=== PATIENT | female | born 2005 | race Caucasian/White ===

== ENCOUNTER 2023-07-29 16:15 | Inpatient (IN) | payer BC, MEDICAID, SELFPAY ==
[2023-07-29] VITALS (12 sets, daily range): BP systolic 109–127; BP diastolic 54–77; PULSE 81–103; TEMP 36.8–36.9; BMI 37.8
[2023-07-29 16:51] LABS: Basophils Percent Auto 0.2 % (0.2-1.2); Eosinophils Absolute Auto 0.1 K/mm3 (0-0.3); Eosinophils Percent Auto 1.5 % (0-4.4); Hematocrit 32.4 % (37.0-47.0); Immature Granulocyte Absolute 0.15 K/mm3 (0.00-0.031); Immature Granulocyte Percent A 1.6 % (0-0.5); Lymphocytes Absolute Auto 1.43 K/mm3 (0.9-3.2); Lymphocytes Percent Auto 15.4 % (18.3-44.2); Mean Corpuscular HGB Conc 30.9 g/dl (32-36); Mean Corpuscular Hemoglobin 25.9 pg (26-34); Mean Corpuscular Volume 83.9 fl (80-100); Mean Platelet Volume 8.7 fl (7.4-10.4); Monocytes Percent Auto 10.2 % (2.6-8.5); Neutrophils Absolute Auto 6.6 K/mm3 (1.3-6.7); Neutrophils Percent Auto 71.1 % (45.5-73.1); Platelet Count Result 315 k/mm3 (150-375); Red Blood Count 3.86 M/mm3 (4.2-5.4); Red Cell Distribution Width 13.6 % (11.5-14.5); White Blood Count 9.3 K/mm3 (4.5-10.0)
--- NOTE | 2023-07-29 16:57 | LDADM ---
This patient, Kelsey Olivo, was admitted to Labor/Delivery/Recovery 108 on 07/29/23 at 16:15. Plans for labor, pain management and were discussed with patient. Patient/family oriented to hospital policies and general routines including ID bracelet, bed and alarms, visiting hours, pain management, procedures, bathroom and other care routines, personal items, smoking policy, room service/diet and guest tray routines, security routines, and visiting hours. Patient/Family are encouraged to report perceived risks to care and to ask questions if they do not understand what they are told or what they should do. See OBIX for further documentation.
--- NOTE | 2023-07-29 17:16 | WPDANESEPP ---
Anes - Eval Pre Procedure Procedure: labor epidural Date/Time: 07/29/23 17:16 Pre Op Diagnosis: Induction of Labor Patient Data Age: 18 Gender: F Height: 1.65 m Weight: 103 kg Last Vital Signs Pulse 85 07/29/23 17:12 BP 122/75 07/29/23 17:12 O2 Del Method Room Air 07/29/23 16:54 Allergies Allergy/AdvReac Type Severity Reaction Status Date / Time No Known Allergies Allergy Verified 07/08/23 13:22 Home Medications Medication Instructions Recorded Confirmed Type prenat.vits,jose,hdx-rsvl-mutet 1 tablet PO DAILY 07/29/23 07/29/23 History Laboratory Tests 07/29/23 16:43 WBC 9.3 K/mm3 (4.5-10.0) RBC 3.86 L M/mm3 (4.2-5.4) Hgb 10.0 L g/dL (12.0-15.0) Hct 32.4 L % (37.0-47.0) MCV 83.9 fl (80-100) MCH 25.9 L pg (26-34) MCHC 30.9 L g/dl (32-36) RDW 13.6 % (11.5-14.5) Plt Count 315 k/mm3 (150-375) MPV 8.7 fl (7.4-10.4) Immature Gran % (Auto) 1.6 H % (0-0.5) Neut % (Auto) 71.1 % (45.5-73.1) Lymph % (Auto) 15.4 L % (18.3-44.2) Upton % (Auto) 10.2 H % (2.6-8.5) Eos % (Auto) 1.5 % (0-4.4) Baso % (Auto) 0.2 % (0.2-1.2) Lymph # (Auto) 1.43 K/mm3 (0.9-3.2) Upton # (Auto) 1.0 H K/mm3 (0.1-0.6) Eos # (Auto) 0.1 K/mm3 (0-0.3) Baso # (Auto) 0.0 K/mm3 (0.0-0.1) Abs Immat Gran (auto) 0.15 H K/mm3 (0.00-0.031) Absolute Neuts (auto) 6.6 K/mm3 (1.3-6.7) Absolute Nucleated RBC 0.0 K/mm3 (0.0-0.012) Nucleated RBC % 0.0 % (0.0-0.2) RPR Pending Patient hx anesthesia problems: none Family hx anesthesia problems: none Results Review: All pre-operative results and documents have been reviewed as part of the pre-operative evaluation. [facility] Past Medical History Medical History (Updated 07/29/23 @ 17:17 by Diane Schmid CRNA) Arthritis Asthma Family History Family History Grandparent Diabetes mellitus Asthma Mother Hypothyroidism Father Sleep apnea Restless leg syndrome Other Cancer Social History Social History Smoking status: Former smoker Smoking end date: 10/20/22 Substance use: never Do You Feel Safe in your Home?: Yes Lack of Transportation: No Lack of Food: Never True Current Housing: I Have Housing Concerned About Future Housing: No Difficulty Paying Gas/Electric Bills: No Difficulty Paying for Meds: No Currently Unemployed: YES Education: High School Diploma/GED Difficulty w/ Childcare or Family Care: No Spiritual care concerns: No Exam Day of Procedure 07/29/23 17:16 Patient weight: obese Heart: regular rate and rhythm Lungs: normal air movement Airway: Mallampati scale Neurological: alert and oriented
[2023-07-29] MEDS: miSOPROStol 25 MCG TABLET 50 MCG PO ×2 (17:27→22:01)
--- NOTE | 2023-07-29 20:31 | PM.IMHP ---
H&P: HPI History of Present Illness Date/Time: 07/29/23 20:31 Chief Complaint: Elective induction of labor Narrative: Patient presents for an elective induction of labor at 39 weeks. has been uncomplicated. Denies headaches, vision changes, chest pain, dyspnea, RUQ pain or epigastric pain. Review of Systems Review of Systems: All systems reviewed & are unremarkable except as noted in HPI and below PMFSH Past Medical History Medical History Arthritis Asthma Family History Family History Grandparent Diabetes mellitus Asthma Mother Hypothyroidism Father Sleep apnea Restless leg syndrome Other Cancer Social History Social History Smoking status: Former smoker Smoking end date: 10/20/22 Substance use: never Do You Feel Safe in your Home?: Yes Lack of Transportation: No Lack of Food: Never True Current Housing: I Have Housing Concerned About Future Housing: No Difficulty Paying Gas/Electric Bills: No Difficulty Paying for Meds: No Currently Unemployed: YES Education: High School Diploma/GED Difficulty w/ Childcare or Family Care: No Spiritual care concerns: No Meds Home Medications and Allergies Home Medications Medication Instructions Recorded Confirmed Type prenat.vits,jose,flc-cjuk-hqnwu 1 tablet PO DAILY 07/29/23 07/29/23 History Allergies Allergy/AdvReac Type Severity Reaction Status Date / Time No Known Allergies Allergy Verified 07/08/23 13:22 Vital Signs Vital Signs - 24 hr 07/29/23 16:54 07/29/23 17:12 07/29/23 17:30 Temperature 98.3 F Pulse Rate 85 94 Blood Pressure 122/75 120/77 Oxygen Delivery Room Air 07/29/23 18:00 07/29/23 18:30 07/29/23 19:00 Temperature Pulse Rate 81 85 83 Blood Pressure 115/68 113/66 116/70 Oxygen Delivery 07/29/23 19:30 Temperature Pulse Rate 87 Blood Pressure 115/63 Oxygen Delivery Exam Const: General: comfortable and no acute distress HENMT: Face/Nose/Sinus: Normal nares present Mouth: Yes moist mucous membranes Eyes: General: appearance normal, both eyes and all related structures Resp: Effort & Inspection: normal respiratory effort Cardio: Rate: regular rate Skin: General skin exam: normal color and no rashes or lesions noted Neuro: Speech: normal speech Motor exam (neuro): 5/5 motor strength present throughout Sensory Exam: normal sensation Extrem: General: normal to inspection Psych: Mental Status: mental status grossly normal H&P: Results Labs Labs: Short CBC 07/29/23 Range/Units 16:43 WBC 9.3 (4.5-10.0) K/mm3 Hgb 10.0 L (12.0-15.0) g/dL Hct 32.4 L (37.0-47.0) % Plt Count 315 (150-375) k/mm3 Assessment and Plan Assessment and plan (1) Encounter for elective induction of labor: Code(s): Z34.90 - Encounter for supervision of normal , unspecified, unspecified trimester Status: Acute Plan Patient presents for elective induction of labor. Plan for cytotec ripening. FHR category I.
[2023-07-30] VITALS (53 sets, daily range): BP systolic 71–136; BP diastolic 20–87; PULSE 79–104; RESP 16; TEMP 36.4–37
[2023-07-30] MEDS: miSOPROStol 25 MCG TABLET 50 MCG PO ×2 (02:39→08:54)
[2023-07-30] MEDS: fentaNYL CITRATE INJ (*CRX) 100 MCG/2 ML VIAL 50 MCG IV PUSH ×2 (08:26→19:05)
[2023-07-30] MEDS: diphenhydrAMINE HCl CAP 25 MG CAPSULE PO (08:54)
[2023-07-30] MEDS: LACTATED RINGERS 1,000 ML 125 ML IV CONT ×2 (13:52→18:52)
[2023-07-30] MEDS: OXYTOCIN 30 UNITS/NS 500 ML 30 UNITS/500 ML BAG 6 UNITS IV CONT (13:53)
[2023-07-30 14:53] LABS: Rapid Plasma Reagin Non-Reactive (NonReactive)
[2023-07-30] MEDS: SODIUM CHLORIDE 0.9% IV 300 ML 600 ML I-UTERINE (18:32)
[2023-07-30] MEDS: fentaNYL CITRATE INJ (*CRX) 100 MCG/2 ML VIAL IV PUSH (21:28)
[2023-07-31] VITALS (229 sets, daily range): BP systolic 91–148; BP diastolic 33–125; PULSE 78–147; RESP 16–18; TEMP 36.5–37.8; O2SAT 80–100
[2023-07-31] MEDS: fentaNYL CITRATE INJ (*CRX) 100 MCG/2 ML VIAL IV PUSH ×3 (00:04→03:56)
[2023-07-31] MEDS: LACTATED RINGERS 1,000 ML 125 ML IV CONT ×4 (02:12→14:08)
[2023-07-31] MEDS: LACTATED RINGERS 500 ML 999 ML IV CONT (03:57)
[2023-07-31] MEDS: fentaNYL CITRATE INJ (*CRX) 100 MCG/2 ML VIAL 50 MCG IV PUSH (05:08)
[2023-07-31] MEDS: PHENYLEPHRINE 1,000 MCG/10 ML SYRINGE 100 MCG IV PUSH ×4 (05:38→05:51)
--- NOTE | 2023-07-31 07:02 | PM.OBPNLAB ---
Pain Control Date/time seen: 07/31/23 07:02 Comments: Doing well, pain well controlled with epidural. AROM 07/30 at 1800 of clear fluid. Last SVE per RN at 0600 was 2.5cm/80. Prolonged decel after epidural placement 2/2 hypotension, FHR now improving. Assessment and Plan Comments: Continue pitocin per protocol once category I. 1 late decel in the past 30 min, mod variability, +accels.
[2023-07-31] MEDS: ACETAMINOPHEN 500 MG TABLET 1000 MG PO (11:03)
[2023-07-31] MEDS: ONDANSETRON INJ 4 MG/2 ML VIAL IV PUSH (11:40)
[2023-07-31] MEDS: AMPICILLIN 2 GM/NS 100 ML 2 GM/100 ML BAG IVPB (12:00)
[2023-07-31] MEDS: LIDOCAINE HCL 1% LOCAL INJ 20 ML VIAL (15:52)
--- NOTE | 2023-07-31 16:00 | PM.OBPRVD ---
OB - Vaginal Delivery Note Procedure Delivery date: 07/31/23 Events: Elective Induction of Labor Intrapartal Events: Decelerations Induction method: Per Misoprostol Protocol Delivery augmentation: Rupture of Membranes and Pitocin Delivery monitor: External FHT and Internal Uterine Route of delivery: Episiotomy description: None Laceration Description: Perineal - 2nd Degree Delivery repair: vicryl Specimen: Yes (placental culture) Quantitative Blood Loss (ml): 150 Anesthesia type: epidural and local Disposition: Floor Complications: No immediate complications Baby Date of : 07/31/23 Weeks of gestation at delivery: 39 Infant gender: Female Weight (pounds): 6 Weight (ounces): 15 presentation: vertex position: Left Occiput Anterior Placenta delivery description: Expressed
[2023-07-31] MEDS: OXYTOCIN 30 UNITS/NS 500 ML 30 UNITS/500 ML BAG 125 UNITS IV CONT (16:05)
[2023-07-31] MEDS: WITCH HAZEL 40 PADS 1 PAD TOPICAL (18:29)
[2023-07-31] MEDS: DOCUSATE SODIUM 100 MG CAPSULE PO (18:29)
[2023-07-31] MEDS: IBUPROFEN 600 MG TABLET PO (18:29)
[2023-07-31] MEDS: BENZOCAINE 20% AER SPR (*SP) 56 GM CAN 1 SPRAY TOPICAL (18:29)
[2023-07-31] MEDS: POLYSACCHARIDE IRON COMPLEX 150 MG CAPSULE PO (18:29)
[2023-07-31] MEDS: ACETAMINOPHEN 325 MG TABLET 650 MG PO (18:30)
--- NOTE | 2023-07-31 19:26 | OBPPTRN ---
Patient transferred to post room #286 via wheelchair. Support person present. Oriented to unit, room, information board, rooming in, admission packet and security measures. Patient verbalizes understanding.
[2023-08-01] VITALS: BP 124/59; PULSE 93; RESP 18; TEMP 36.8; O2SAT 100
[2023-08-01] MEDS: IBUPROFEN 600 MG TABLET PO ×3 (01:40→18:28)
[2023-08-01 04:00] VITALS: BP 116/70; PULSE 83; RESP 18; TEMP 36.4; O2SAT 98
[2023-08-01 05:47] LABS: Hemoglobin 7.9 g/dL (12.0-15.0)
[2023-08-01 08:15] VITALS: BP 102/56; PULSE 91; RESP 16; TEMP 36.6; O2SAT 99
--- NOTE | 2023-08-01 08:23 | PM.OBPNVD ---
OB - PN: Subj Subjective Date/time seen: 08/01/23 08:23 Patient comments: no complaints, pain well controlled, incisional pain, tolerating diet and flatus present OB - PN: Obj Data Labs 08/01/23 04:23 Labs: Laboratory Results - last 24 hr 08/01/23 04:23 Hgb 7.9 L Hct 25.0 L OB - PN A/P Plan day: 1 Plan: routine care Comments: No problems, routine care Time Spent With Patient Time: Total time spent is greater than 50% in coordination of care (as documented) at patient's floor/unit and/or counseling patient: Exam Const: General: comfortable, no acute distress and alert Resp: Effort & Inspection: normal respiratory effort Auscultation: no crackles, no rales and no rhonchi Cardio: Rate: regular rate Heart sounds: no click, no murmurs and no rubs GI: Inspection: non-distended GI Palp: No Tenderness to palpation present (GI) Auscultation: normal bowel sounds Other: Incision - CDI Extrem: General: normal to inspection, no pedal edema and no calf tenderness
[2023-08-01] MEDS: DOCUSATE SODIUM 100 MG CAPSULE PO ×2 (08:37→17:50)
[2023-08-01] MEDS: POLYSACCHARIDE IRON COMPLEX 150 MG CAPSULE PO ×2 (08:37→17:50)
--- NOTE | 2023-08-01 09:02 | WPDANLDPN2 ---
Anes-Prog Note L&D Date/Time: 08/01/23 09:02 Comfortable throughout: labor and delivery Neuraxial method: epidural Epidural/Spinal procedure site: tender Neuro status: Neuro function grossly intact. Cardiovascular status: normal Respiratory status: normal Airway patency: baseline Mental status: baseline Post-Op hydration status: normal Vital Signs: Last Vital Signs Temp 36.4 C 08/01/23 04:00 Pulse 83 08/01/23 04:00 Resp 18 08/01/23 04:00 BP 116/70 08/01/23 04:00 Pulse Ox 98 08/01/23 04:00 O2 Del Method Room Air 07/29/23 16:54 Pain score (VAS): 3/10 I/O: Intake & Output 07/31/23 08/01/23 08/01/23 23:59 07:59 15:59 Output Total 675 Balance -675 Post-procedural complaints: none Patient feedback: Patient satisfied with anesthetic care.
[2023-08-01 11:44] VITALS: BP 105/49; PULSE 98; RESP 18; TEMP 36.9; O2SAT 99
--- NOTE | 2023-08-01 13:52 | PC.NURSE ---
[id number] Purposefully rounded and made introductions. Mother is cradle holding her in a fuzzy warm blanket stating she is unable to get her daughter to eat and she hasn't breastfed since 0300. Blood sugar was resulted at 83mg/dl. Mother led the conversation with her?plans to feed?her , the?experience so far stating infant breastfed very well earlier and had a large spit up. 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 Mother plans to supplement with formula and was encouraged to protect her milk supply. Encouraged understanding of the benefits of skin to skin (demonstrating unwrapping and placing upright on her chest), stimulating with massage touch, changing positions to encourage wakefulness, how to watch for early feeding cues, responsive feeding, feeding on demand (aiming for 8-12 times in 24 hours, about every 2-3 hours), milk production, building/maintaining a milk supply, duration of feeding, signs of adequate intake/output and how to record on the feeding sheet. started showing feeding cues about 15-20 min after a wet/smear stool diaper change and upright S2S. Mother works well with her infant with encouragement, education and is responsive to latching infant showing feeding cues. Reviewed positioning and ear, shoulder, hip alignment, supporting the breast to facilitate a deep latch, asymmetrical latch (off-center), leading with the chin with a big, open, wide gape and body close to mother. Infant latched optimally to the left breast with cross cradle assistance as mother was attempting to latch with cradle position. Education given to the mother of how to visualize the suckling (with good rocking jaw motion), swallows (dropping of the lower jaw) and how to listen for drinking at the breast (the ka sound) and is demonstrating good deep jaw dropping about every 2-3 sucks. Infant was able to maintain latch without pain to mother protecting the nipple with optimal positioning and latching. Reviewed good handwashing when or touching the breast/nipples to prevent infection. Mother voiced understanding of skin to skin, stimulating with massage touch, responsive feedings, talking to infant to encourage if it has been 2 -2.5 hours since the start of the last , to call if does not latch, difficulty waking to breastfeed, or if there is discomfort with . Resources used for education and inpatient/outpatient assistance with feeding sheet, name written on the communication board, and the mom/baby guide. Mother voiced understanding of information, demonstrated learning and will call if there is a request for assistance. Reported to the Primary RN.
[2023-08-01 18:35] VITALS: BP 113/60; PULSE 93; RESP 16; TEMP 36.3
--- NOTE | 2023-08-02 07:57 | PM.OBPNVD ---
OB - PN: Subj Subjective Date/time seen: 08/02/23 07:57 Interval history: pp day 2 c/o swelling in legs pain managed planning d/c home OB - PN: Obj Data Labs 08/01/23 04:23 OB - PN A/P Plan day: 2 Plan: routine care and discharge home Time Spent With Patient Time: Total time spent is greater than 50% in coordination of care (as documented) at patient's floor/unit and/or counseling patient: Review of Systems Review of Systems: All systems reviewed & are unremarkable except as noted in HPI and below Exam Const: General: cooperative and healthy appearing GI: Inspection: normal to inspection Back/Spine/Pelvis: Back: no CVA tenderness Skin: General skin exam: normal color Neuro: General: patient oriented x3 Extrem: Right lower extremity: edema Details: non-pitting and 2+ Left lower extremity: edema Details: non-pitting and 2+ Psych: Appearance: grossly normal
--- NOTE | 2023-08-02 08:01 | P.DS_ITS ---
DS: Admitting Diagnosis Discharge Date 08/02/23 Admitting Diagnosis IOL DS: Discharge Diagnosis Discharge Diagnosis (1) Vaginal delivery: Code(s): O80 - Encounter for full-term uncomplicated delivery Status: Acute OB - DS: Summary OB Procedures : None OB Procedures Intrapartum: Spontaneous Vag Delivery OB Procedures: : None Peripartum Data Laceration Description: Perineal - 2nd Degree Episiotomy description: None Time Spent with Patient Time attestation: Total time spent providing and/or coordinating discharge services: DS: Data Data Completed and Pending Labs on day of discharge: Preliminary micro results at discharge 07/31/23 16:20 Anaerobic Culture - Preliminary Placenta Maternal Aerobic Culture - Preliminary 07/31/23 16:20 Anaerobic Culture - Preliminary Placenta Discharge Plan Discharge Attending physician on discharge: Moriah Macdonald Discharging Clinician: Jailene Danielson Patient Disposition: Home, Self-Care Activity: pelvic rest Diet: regular Patient Instructions: Antibiotic Form Stand Alone Forms: General Discharge Information Follow-up/Referrals: Fahad Hernandez MD [Physician] - 4 Weeks Discharge Medications: New ibuprofen 600 mg Tablet 600 mg PO Q6H PRN (Reason: Cramping) Qty: 30 0RF Auryxia 210 mg iron tablet 210 mg PO BID Qty: 60 0RF Rx Instructions: administer with a meal Continued Vitamin Tablet 1 tablet PO DAILY Date of admission: 07/29/23 16:15 Primary Care Provider: PHYSICIAN,CUSTOMER CARE CONSULTANT Admitting Provider: Fahad Hernandez Attending physician on admission: Fahad Hernandez Condition: Stable
[2023-08-02 08:05] VITALS: BP 113/58; PULSE 89; RESP 18; TEMP 36.5; O2SAT 99
[2023-08-02] MEDS: diphenhydrAMINE HCl CAP 25 MG CAPSULE PO (09:46)
[2023-08-02] MEDS: DOCUSATE SODIUM 100 MG CAPSULE PO (09:46)
[2023-08-02] MEDS: POLYSACCHARIDE IRON COMPLEX 150 MG CAPSULE PO (09:46)
[2023-08-02] MEDS: LANOLIN (LANSINOH) 7.5 GM CREAM 1 APPLIC TOPICAL (09:47)
--- NOTE | 2023-08-02 17:19 | PC.NURSE ---
[id number] Purposefully rounded to assess for needs. Mother states she is well, seeing swallows, with no pain. Father of baby has finished feeding a portion of a formula bottle. Mother states she is pumping as well to protect her milk supply. We discussed the possibility of a delay in her milk or low production and how to protect her milk. Reminded mother to use good handwashing technique to prevent infection. Mother is feeding appropriately for growth of and understands stimulating to eat if needed. Infant has had appropriate feedings in the last 24 hours meets the outcomes for weight, output, blood sugar and jaundice at this time. Mother states she is confident to continue effectively her infant at home, when to call for assistance, denies any additional assistance or education at this time. Reinforced understanding of milk production, transition of milk, signs of adequate intake, transition of stool, prevention/relief of engorgement, plugged ducts, mastitis, responsive watching for feeding cues, the different methods of stimulating infant to breastfeed 1-3 hours after the start of the last feeding, community resources, and when to call a provider using the resource of the mom and baby guide and feeding sheet. Mother voiced understanding of the education shared. Reviewed to breast feed or pump for a good milk production at the minimal 8-12 times in 24 hours) 1-2 times at night. Reported to the Primary RN.
[2023-08-03 09:43] VITALS: BP 128/66; PULSE 82; RESP 18; TEMP 37.1; O2SAT 100
== END 2023-08-02 13:05 | disposition home or self-care (01) | DRG 807 ==
LOC: ANHLDR 16:19 → ANHOB2 07-31 19:39
PROVIDERS: Admitting Provider Obstetrics & Gynecology; Visit Provider Obstetrics & Gynecology
DX: O77.0 Labor and delivery complicated by meconium in amniotic fluid (principal); Z37.0 Single live birth; Z3A.39 39 weeks gestation of pregnancy; O70.1 Second degree perineal laceration during delivery; O63.1 Prolonged second stage (of labor); O69.81X0 Labor and delivery complicated by cord around neck, without compression, not applicable or unspecified; O36.8330 Maternal care for abnormalities of the fetal heart rate or rhythm, third trimester, not applicable or unspecified
CPT/HCPCS: 36415; 85014; 85018; 85025; 86592; 86850; 86900; 86901; 87070; 87075; 87077; 87205; A9270; J0290; J2371; J2405; J2590; J2795; J3010; J7030; J7120

== ENCOUNTER 2023-09-09 19:17 | Emergency (ER) | payer BC, MEDICAID, SELFPAY ==
[2023-09-09 19:32] VITALS: BP 121/57; PULSE 73; RESP 16; TEMP 36.9; O2SAT 98
--- NOTE | 2023-09-09 22:06 | ED.FEVER ---
HPI - Fever General Chief Complaint: Fever Stated Complaint: fever Time Seen by Provider: 09/09/23 20:16 History of Present Illness HPI Narrative: 18-year-old female presenting emergency department for evaluation of viral syndrome. Patient presented to the emergency department for evaluation for her daughter and also wanted to be checked out as well. Patient states she did have a fever and did have some stomach irritation. Patient denies any other symptoms. Related Data Home Medications Medication Instructions Recorded Confirmed prenat.vits,jose,gzw-qogv-okfgu 1 tablet PO DAILY 07/29/23 07/29/23 Allergies Allergy/AdvReac Type Severity Reaction Status Date / Time No Known Allergies Allergy Verified 07/08/23 13:22 Review of Systems Review of Systems: All systems reviewed & are unremarkable except as noted in HPI and below PMFSH Past Medical History Medical History Arthritis Asthma Family History Family History Grandparent Diabetes mellitus Asthma Mother Hypothyroidism Father Sleep apnea Restless leg syndrome Other Cancer Social History Social History Smoking status: Former smoker Smoking end date: 10/20/22 Substance use: never Do You Feel Safe in your Home?: Yes Lack of Transportation: No Lack of Food: Never True Current Housing: I Have Housing Concerned About Future Housing: No Difficulty Paying Gas/Electric Bills: No Difficulty Paying for Meds: No Currently Unemployed: YES Education: High School Diploma/GED Difficulty w/ Childcare or Family Care: No Spiritual care concerns: No Exam Narrative: APPEARANCE: Well appearing, no pain, no distress, well-nourished. HEAD: normocephalic, atraumatic. EYES: PERRLA/EOMI, conjunctivae clear. NOSE: Normal no drainage EARS:TMS clear with good light reflex. THROAT: Pharynx clear, no exudate. NECK: Supple. No adenopathy, no masses. RESPIRATORY: Airway patent, respirations nonlabored. Clear to auscultation bilaterally, no rales, rhonchi, wheezing. CARDIOVASCULAR: Regular rate and rhythm without murmurs rubs or gallops. ABDOMINAL: Soft, nontender, nondistended, normal bowel sounds MUSCULOSKELETAL: Moves all extremities. Strength/ROM intact, No edema, No calf tenderness. NEURO: Alert. Cranial nerves II through XII intact. Grossly intact SKIN: Warm, dry. Normal Color Course Course Emergency Course: 18-year-old female presenting to the emergency department for evaluation of viral symptoms. Patient was negative for influenza RSV and for COVID. Patient was updated on the results of the workup patient was comfortable with plan for discharge and close follow-up. Vital Signs Vital signs: Vital Signs Temperature 98.5 F 09/09/23 19:32 Pulse Rate 73 09/09/23 19:32 Respiratory Rate 16 09/09/23 19:32 Blood Pressure 121/57 L 09/09/23 19:32 Pulse Oximetry 98 09/09/23 19:32 Oxygen Delivery Room Air 09/09/23 19:32 Temperature 98.5 F 09/09/23 19:32 Pulse Rate 78 09/09/23 23:07 Respiratory Rate 15 09/09/23 23:07 Blood Pressure 122/74 09/09/23 23:07 Pulse Oximetry 99 09/09/23 23:07 Oxygen Delivery Room Air 09/09/23 19:32 MDM - Fever Lab Data Labs: Lab Results 09/09/23 Range/Units 21:14 Influenza A (RT-PCR) Negative (Negative) Influenza B (RT-PCR) Negative (Negative) RSV (RT-PCR) Negative (Negative) SARS-CoV-2 RNA (RT-PCR) Negative (Negative) Discharge Plan Discharge Clinical Impression: Acute viral syndrome Patient Disposition: Home, Self-Care Condition: Stable Instructions: Antibiotic Form, Clear Liquid Diet (ED), Viral Syndrome (ED) Additional Instructions: Clear liquid diet for the next 1-3 days. Advance to bland diet as tolerated. If you have any worsening symptoms ple
[2023-09-09 22:21] LABS: Influenza A QL RT-PCR Negative (Negative); Influenza B QL RT-PCR Negative (Negative); RSV RNA, RT-PCR Negative (Negative); SARS-CoV-2 RNA PCR Negative (Negative)
[2023-09-09 23:07] VITALS: BP 122/74; PULSE 78; RESP 15; O2SAT 99
== END 2023-09-09 23:09 | disposition home or self-care (01) ==
PROVIDERS: Emergency Provider Emergency Medicine
DX: B34.9 Viral infection, unspecified (principal); Z20.822 Contact with and (suspected) exposure to COVID-19; J45.909 Unspecified asthma, uncomplicated; M19.90 Unspecified osteoarthritis, unspecified site; Z87.891 Personal history of nicotine dependence
CPT/HCPCS: 87637; 99283

== ENCOUNTER 2025-01-15 18:04 | Emergency (ER) | payer OTHER, SELFPAY ==
--- NOTE | ~2025-01-15 | XR_ITS ---
HISTORY: rolled my ankle. COMPARISON: None TECHNIQUE: 3 views of the right ankle were performed FINDINGS: No acute fracture or dislocation. Lateral soft tissue swelling. The ankle mortise is preserved. Bone mineralization is age-appropriate. IMPRESSION: Lateral soft tissue swelling without acute fracture. Reviewed, dictated and finalized at location A.
[2025-01-15 18:54] VITALS: BP 120/74; PULSE 62; RESP 16; TEMP 37.3; O2SAT 97
--- NOTE | 2025-01-15 20:13 | ED.LOWEXIN ---
HPI - Extremity Injury (Lower) General Chief Complaint: Extremity Injury, Lower Stated Complaint: R ankle pain Time Seen by Provider: 01/15/25 20:13 Source: patient Mode of arrival: ambulatory Limitations: no limitations History of Present Illness HPI Narrative: Patient is a 20-year-old female presenting to the emergency department following a ground level fall while tripping over her dog this evening. Patient reports right ankle pain and swelling after rolling her ankle while trying to run after her dog. She reports mild pain and swelling. No numbness. Difficulty bearing weight secondary to pain. Pain is exacerbated with movement, mostly on the lateral aspect of the right ankle. No history of injury in this area in the past. Has not taken any medication. Related Data Home Medications ?Medication ?Instructions ?Recorded ?Confirmed ?Last Taken ?Type prenat.vits,jose,pdr-[id number] 1 tablet PO DAILY 07/29/23 07/29/23 07/29/23 14:00 History Allergies Allergy/AdvReac Type Severity Reaction Status Date / Time No Known Allergies Allergy Verified 01/15/25 18:53 Review of Systems Review of Systems: All systems reviewed & are unremarkable except as noted in HPI and below PMFSH Past Medical History Medical History Arthritis Asthma Family History Family History Grandparent Diabetes mellitus Asthma Mother Hypothyroidism Father Sleep apnea Restless leg syndrome Other Cancer Social History Social History Smoking status: Former smoker Smoking end date: 10/20/22 Substance use: never Do You Feel Safe in your Home?: Yes Lack of Transportation: No Lack of Food: Never True Current Housing: I Have Housing Concerned About Future Housing: No Difficulty Paying Gas/Electric Bills: No Difficulty Paying for Meds: No Currently Unemployed: YES Education: High School Diploma/GED Difficulty w/ Childcare or Family Care: No Spiritual care concerns: No Exam Const: General: healthy appearing and no acute distress Orientation/consciousness: patient oriented x3 Limitations: no limitations HENMT: Head: normal to inspection Eyes: Conjunctivae: conjunctivae normal EOM: EOMs intact bilaterally Neck: Neck: normal visual inspection Chest: Chest palpation & inspection: normal inspection of the chest Resp: Effort & Inspection: normal respiratory effort Auscultation: clear to auscultation bilaterally Cardio: Rate: regular rate Rhythm: regular rhythm GI: GI Palp: Yes Soft to palpation Skin: General skin exam: normal color Neuro: General: patient oriented x3, moves all extremities and CN's II-XI intact bilaterally Extrem: Other: Right ankle: Tenderness to the lateral aspect of the right ankle over the lateral malleolus, edema present. No ecchymosis. No induration. No laceration or wound. DP pulse 2 +. Intact distal sensation in the phalanxes. Reduced flexion extension at the ankle secondary to pain. No calf tenderness. Psych: Mental Status: mental status grossly normal Affect: normal affect Attitude: cooperative Course Vital Signs Vital signs: Vital Signs Temperature 37.3 C 01/15/25 18:54 Pulse Rate 62 01/15/25 18:54 Respiratory Rate 16 01/15/25 18:54 Blood Pressure 120/74 01/15/25 18:54 Pulse Oximetry 97 01/15/25 18:54 Oxygen Delivery Room Air 01/15/25 18:54 Temperature 36.9 C 01/15/25 20:14 Pulse Rate 65 01/15/25 20:14 Respiratory Rate 20 01/15/25 20:14 Blood Pressure 119/65 01/15/25 20:14 Pulse Oximetry 97 01/15/25 20:14 Oxygen Delivery Room Air 01/15/25 20:14 MDM - Extremity Injury (Lower) MDM Narrative Medical decision making narrative: Patient evaluated for potential ankle fracture given mechanism and swelling. Patient is neurovascularly intact. Radiographic imaging is reassuring, no evidence of acute fracture per my review. Patient advised with rest, ice, elevation, crutches as needed and discharged with close follow-up to primary care physician. Differential Diagnosis Differential diagnosis: Likely ankle sprain and strain and other (ankle fracture, dislocation, hematoma) Medical Records Attestation: I reviewed the patient's medical records. Imaging Data My impression: X-ray reviewed, per my interpretation no acute fracture dislocation, mild right lateral soft tissue edema Radiologist's impression: ITS Impressions Ankle X-Ray 01/15/25 20:45 IMPRESSION: Lateral soft tissue swelling without acute fracture. Discharge Plan Discharge Clinical Impression: Ankle sprain and strain Patient Disposition: Home Condition: Stable Instructions: Ankle Sprain (ED) Additional Instructions: Your x ray was negative for fracture; there is no broken bone. Please rest, ice and elevate your extremity as much as possible. Your pain should subside within 10 days. Please see your primary care physician for repeat x rays if pain is persisting. You may use crutches as needed. Patient Language: Omani Prescriptions: New ibuprofen 400 mg tablet 400 mg PO TID PRN (Reason: fever or pain) 10 Days Qty: 30 0RF acetaminophen 500 mg capsule 500 mg PO Q6H PRN (Reason: fever or pain) Qty: 30 0RF No Action prenat.vits,jose,wpt-hrrt-lojzs Tablet 1 tablet PO DAILY Auryxia 210 mg iron tablet 210 mg PO BID Qty: 60 0RF Rx Instructions: administer with a meal ibuprofen 600 mg Tablet 600 mg PO Q6H PRN (Reason: Cramping) Qty: 30 0RF Follow-up/Referrals: [facility] [Other] PHYSICIAN,ASSISTANT FACILITY MANAGER [Primary Care Provider] -
[2025-01-15 20:14] VITALS: BP 119/65; PULSE 65; RESP 20; TEMP 36.9; O2SAT 97
[2025-01-15 21:20] VITALS: BP 130/82; PULSE 67; RESP 18; TEMP 36.8; O2SAT 98
[2025-01-15 21:30] VITALS: BP 130/82; PULSE 67; RESP 18; TEMP 36.8; O2SAT 98
== END 2025-01-15 21:20 | disposition home or self-care (01) ==
PROVIDERS: Emergency Provider Emergency Medicine
DX: S93.401A Sprain of unspecified ligament of right ankle, initial encounter (principal); S96.911A Strain of unspecified muscle and tendon at ankle and foot level, right foot, initial encounter; J45.909 Unspecified asthma, uncomplicated; M19.90 Unspecified osteoarthritis, unspecified site; Z87.891 Personal history of nicotine dependence; W01.0XXA Fall on same level from slipping, tripping and stumbling without subsequent striking against object, initial encounter
CPT/HCPCS: 73610; 99283